=== PATIENT | female | born 1975 | race Caucasian/White ===

== ENCOUNTER 2022-05-12 08:20 | Emergency (ER) | payer OTHER ==
[~2022-05-12] VITALS: Ht 162.6 cm; Wt 81.6 kg
[2022-05-12 08:24] VITALS: BP 166/89
--- NOTE | 2022-05-12 08:30 | NUR ---
ER MD AT BEDSIDE EXAMINING PT
[2022-05-12] MEDS ORDERED: METOCLOPRAMIDE 10 MG/2 ML INJ VIAL IVP ONE (08:35)
[2022-05-12] MEDS ORDERED: KETOROLAC 30 MG/ML VIAL IVP ONE (08:35)
[2022-05-12] MEDS ORDERED: diphenhydrAMINE 50 MG/ML VIAL IVP ONE (08:35)
[2022-05-12] MEDS ORDERED: NACL 0.9% 1,000 ML IV ONE (08:35)
--- NOTE | 2022-05-12 08:39 | NUR ---
46 Y/O FEMALE BIBS FROM HOME, C/O OF N/V AND HEADACHE 8/10 TODAY. DENIES ANY ABD PAIN. A/OX4, GCS-15; UNLABORED BREATHING, SPEAKING IN FULL SENTENCES; AMBULATORY WITHOUT ASSISTANCE. NKA PMH: ACHALASIA
--- NOTE | 2022-05-12 10:21 | NUR ---
PT AMBULATED TO RESTROOM AND STATES SHE "FEELS BETTER," AND WANTS TO "GO HOME NOW." MADE AWARE.
[2022-05-12 10:26] VITALS: BP 166/89
--- NOTE | 2022-05-12 10:27 | NUR ---
Patient discharged with v/s stable. Written and verbal after care instructions given and explained. Patient verbalized understanding. Ambulatory with steady gait. All questions addressed prior to discharge. Advised to follow up with PMD. VSS, A/OX4, UNLABORED BREATHING, AMBULATORY, AND CALM DEMEANOR.
== END 2022-05-12 10:27 | disposition home or self-care (01) ==
LOC: MED 08:20
DX: G43.909 Migraine, unspecified, not intractable, without status migrainosus (principal); R11.2 Nausea with vomiting, unspecified; Z98.890 Other specified postprocedural states
CPT/HCPCS: 96361; 96374; 96375; 99284; J1200; J1885; J2765; J7030